=== PATIENT | female | born 1945 | race Caucasian/White ===

== ENCOUNTER 2018-04-21 11:28 | Day surgery (SDC) | payer MEDICARE, OTHER ==
[2018-04-21] MEDS: NS 1,000 ML IV (06:00)
[2018-04-21] MEDS ORDERED: PROPOFOL 200 MG/20 ML VIAL As Ordered (12:22)
[2018-04-21] MEDS ORDERED: LIDOCAINE 2% INJ 100 MG/5 ML SDV (FOR ANES.) As Ordered (12:22)
[2018-04-21] MEDS ORDERED: fentaNYL 100 MCG/2 ML INJECTION (J3010) As Ordered (12:22)
== END 2018-04-21 13:18 | disposition home or self-care (01) ==
LOC: M OPP 11:28
DX: Z12.11 Encounter for screening for malignant neoplasm of colon (principal); D12.3 Benign neoplasm of transverse colon; K57.30 Diverticulosis of large intestine without perforation or abscess without bleeding; K64.8 Other hemorrhoids; K21.9 Gastro-esophageal reflux disease without esophagitis; K22.8 Other specified diseases of esophagus; M19.90 Unspecified osteoarthritis, unspecified site; M81.0 Age-related osteoporosis without current pathological fracture; E55.9 Vitamin D deficiency, unspecified; R32 Unspecified urinary incontinence; Z79.899 Other long term (current) drug therapy; Z88.8 Allergy status to other drugs, medicaments and biological substances; Z98.890 Other specified postprocedural states
CPT/HCPCS: 45385

== ENCOUNTER → 2018-07-03 | Outpatient (CLI) | payer MEDICARE, OTHER ==
[~2018-07-03] MED LIST: BENA25CA4 PO; CENT1TAB19 PO; COLA100C5 PO; D 50CAP PO; D MANNOSE PO; ESTR1MIS; FLON1SPR; FORT600S SC; GLUC15002 PO; MELA3TAB49 PO; OMEP20CA3 PO; REFR0.1D OU; calcium PO
--- NOTE | 2018-07-03 10:14 | REP ---
MAXILLOFACIAL CT WITHOUT CONTRAST: HISTORY: Chronic pansinusitis. Mild mucosal thickening is present in the maxillary and left ethmoid sinuses. Minimal mucosal thickening is present in the sphenoid sinus. The remaining sinuses are clear. Mucosal thickening involves the ostiomeatal units. The middle and inferior nasal turbinates are partially paradoxical. There is mild deviation of the nasal septum to the left. A large spur is present arising from the left side of the nasal septum. The cribriform plate, medial jackson of the orbits and optic canals are intact. There is aeration of the right anterior clinoid process. The carotid canals form a segment of the posterolateral jackson of the sphenoid sinus. IMPRESSION: Sinus mucosal thickening as described above. Electronically Signed by Adiel De Los Santos MD 07/03/2018 10:17 A
== END ==
LOC: M RAD 09:01
PROVIDERS: ATTEND Otolaryngology
DX: J32.4 Chronic pansinusitis (principal)

== ENCOUNTER → 2019-06-04 | Outpatient (CLI) | payer MEDICARE, OTHER ==
[~2019-06-04] MED LIST changes: +OMEP-172 PO; -OMEP20CA3 PO
[2019-06-04 12:02] LABS: BLOOD UREA NITROGEN 21 MG/DL (7-18); CALCIUM LEVEL 9.5 MG/DL (8.8-10.2); CARBON DIOXIDE LEVEL 28 MEQ/L (21-32); CHLORIDE LEVEL 104 MEQ/L (98-107); CREATININE FOR GFR 0.84 MG/DL (0.55-1.30); GLOMERULAR FILTRATION RATE > 60.0 (>39); GLUCOSE, FASTING 90 MG/DL (70-100); POTASSIUM SERUM 4.2 MEQ/L (3.5-5.1); SODIUM LEVEL 141 MEQ/L (136-145)
== END ==
LOC: M LAB 10:37
PROVIDERS: ATTEND Internal Medicine Endocrinology, Diabetes & Metabolism
DX: M81.0 Age-related osteoporosis without current pathological fracture (principal)

== ENCOUNTER 2019-06-11 12:34 | Outpatient (CLI) | payer MEDICARE, OTHER ==
[~2019-06-11] VITALS: Ht 167.6 cm; Wt 84.5 kg
[2019-06-11 12:40] VITALS: BP 121/69
[2019-06-11] MEDS ORDERED: ZOLEDRONIC ACID 5 MG in IV 1 EA IV ONE (13:00)
[2019-06-11 13:45] VITALS: BP 123/65
== END 2019-06-11 14:00 | disposition home or self-care (01) ==
LOC: M INFU 12:34
PROVIDERS: ATTEND Internal Medicine Endocrinology, Diabetes & Metabolism
DX: M81.0 Age-related osteoporosis without current pathological fracture (principal); Z88.1 Allergy status to other antibiotic agents; Z88.6 Allergy status to analgesic agent; Z91.041 Radiographic dye allergy status
CPT/HCPCS: 96365; J3489

== ENCOUNTER → 2021-01-05 | Outpatient (CLI) | payer MEDICARE, OTHER ==
[~2021-01-05] MED LIST changes: -OMEP-172 PO; +OMEP1CAP73 PO
--- NOTE | 2021-01-05 09:10 | REPMRS ---
Patient History The patient states she had a clinical breast exam in November 2020. Patient is postmenopausal. No known family history of cancer. Pt stated she had her covid vaccines in her left arm, dates unknown. Patient states no breast complaints today. Patient has signed MRS History Sheet. Digital Woman Screen Mammo: January 05, 2021 - Exam #: [id number] Bilateral CC and MLO view(s) were taken. Technologist: Jeannette Brody RT Prior study comparison: March 06, 2018, bilateral digital mammo screening bilat, performed at [facility]. March 01, 2017, bilateral digital mammo screening bilat, performed at [facility]. February 12, 2016, bilateral digital mammo screening bilat, performed at [facility]. FINDINGS: There are scattered fibroglandular densities. The Volpara volumetric breast density category is:B. There has been no change in the appearance of the mammogram from the prior studies. There is a mild amount of scattered fibroglandular density which is fairly symmetric. There is no interval development of dominant mass, architectural distortion, or grouped microcalcification suggestive of malignancy. 3-D tomosynthesis shows no additional findings. Assessment: BI-RADS/ACR category 1 mammogram. Negative Mammogram. Recommendation Routine screening mammogram of both breasts in 1 year (for women over age 40). This patient's [facility] Lifetime Breast Cancer Risk is estimated at 4.5 %. This mammogram was interpreted with the aid of an FDA-approved computer-aided dectection system. Electronically Signed By: Yasir Bell MD 01/05/21 0913
== END ==
LOC: M WHC 08:12
PROVIDERS: ATTEND Student in an Organized Health Care Education/Training Program
DX: Z12.31 Encounter for screening mammogram for malignant neoplasm of breast (principal)

== ENCOUNTER → 2021-03-15 | Outpatient (CLI) | payer MEDICARE, OTHER ==
--- NOTE | 2021-03-15 14:11 | REP ---
INDICATION: RT KNEE PAIN. Chronic right knee pain. Clicking and pain along the medial aspect of the patella. COMPARISON: No available comparison imaging.. TECHNIQUE: Axial, coronal, and sagittal imaging planes utilized. T1, proton density, and T2 weighted scans are obtained in the usual fashion with without fat saturation. FINDINGS: There is a small joint effusion and a Schmid's cyst is seen in the posteromedial popliteal soft tissues. There is subcortical cyst formation beneath the tibial spines. Cortical and medullary bone signal intensity is otherwise normal. There is advanced articular cartilage thinning in the patella lateral and medial facet and there is some subcortical cyst formation in the patella. There is no evidence of medial or lateral collateral ligament disruption. No medial or lateral meniscal tear is appreciated. The anterior and posterior cruciate ligaments have an intact appearance. There is no evidence of patellar or quadriceps tendon disruption. There is some edema at the inferior tip of the patella just posterior to the proximal patellar tendon which may reflect patellar tendinitis. 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 Joint effusion in a complex multiloculated Schmid's cyst. <Electronically signed by Yasir Bell > 03/15/21 [id number]
== END ==
LOC: M PLAIMG 12:38
PROVIDERS: ATTEND Student in an Organized Health Care Education/Training Program
DX: M17.11 Unilateral primary osteoarthritis, right knee (principal)

== ENCOUNTER → 2021-11-14 | Outpatient (CLI) | payer OTHER | LOC: M WHC 08:11 | PROVIDERS: ATTEND Internal Medicine Endocrinology, Diabetes & Metabolism | DX: M81.0 Age-related osteoporosis without current pathological fracture (principal) ==

== ENCOUNTER → 2021-11-15 | Outpatient (CLI) | payer OTHER | LOC: M WHC 08:31 | PROVIDERS: ATTEND Internal Medicine Endocrinology, Diabetes & Metabolism | DX: M81.0 Age-related osteoporosis without current pathological fracture (principal) ==

== ENCOUNTER → 2024-01-01 | Outpatient (CLI) | payer MEDICARE, OTHER ==
[~2024-01-01] MED LIST changes: -ESTR1MIS; +ESTR1VAG3
== END ==
LOC: M WHC 08:55
PROVIDERS: ATTEND Internal Medicine
DX: Z12.31 Encounter for screening mammogram for malignant neoplasm of breast (principal); M81.0 Age-related osteoporosis without current pathological fracture; M85.851 Other specified disorders of bone density and structure, right thigh; M85.852 Other specified disorders of bone density and structure, left thigh